=== PATIENT | female | born 1940 | race Asian ===

== ENCOUNTER 2022-09-24 19:13 | Inpatient (IN) | payer MEDICAID, MEDICARE ==
[~2022-09-24] VITALS: Ht 152.4 cm; Wt 43.1 kg
[2022-09-24 19:17] VITALS: BP_SYST 152
[2022-09-24] MEDS ORDERED: MECLIZINE HCL 25 MG TABLET (ANITVERT) PO ONE (19:45)
[2022-09-24] MEDS ORDERED: METOCLOPRAMIDE HCL 10 MG/2 ML VIAL IVP ONE (19:45)
[2022-09-24 19:59] LABS: BASOPHILS % (AUTO) 0.1 % (0.0-2.0); HEMATOCRIT 37.8 % (36-48); LYMPHOCYTES # (AUTO) 0.5 K/uL (1.0-5.5); LYMPHOCYTES % (AUTO) 4.2 % (20.5-51.5); MEAN CORPUSCULAR HEMOGLOBIN 28 pg (27-31); MEAN CORPUSCULAR HGB CONC 32 % (32-36); MEAN CORPUSCULAR VOLUME 89 fL (79.0-98.0); MONOCYTES # (AUTO) 1.2 K/uL (0.0-1.0); MONOCYTES % (AUTO) 9.6 % (1.7-9.3); NEUTROPHILS # (AUTO) 10.9 K/uL (1.8-7.7); NEUTROPHILS % (AUTO) 86.1 % (40.0-70.0); PLATELET COUNT (AUTO) 101 K/uL (130-430); RED BLOOD CELL COUNT(AUTO) 4.25 MIL/uL (4.2-6.2); WHITE BLOOD COUNT (AUTO) 12.7 K/uL (4.8-10.8)
[2022-09-24] MEDS ORDERED: MECLIZINE HCL 25 MG TABLET (ANITVERT) ONE (20:42)
[2022-09-24 21:07] LABS: ALANINE AMINOTRANSFERASE 20 U/L (12-78); ALBUMIN 2.5 g/dL (3.4-4.8); AMYLASE 35 U/L (0-100); ASPARTATE AMINOTRANSFERASE 24 U/L (10-37); CALCIUM 8.2 mg/dL (8.4-11.0); CREATININE 0.73 mg/dL (0.55-1.30); GLUCOSE 129 mg/dL (70-99); LIPASE 49 U/L (73-393); UREA NITROGEN, BLOOD 26 mg/dL (8-21)
[2022-09-24 21:38] LABS: ANION GAP 10 (5-15); CHLORIDE 105 mmol/L (98-107)
[2022-09-24] MEDS ORDERED: DILTIAZEM HCL 60 MG TABLET PO ONE (21:45)
[2022-09-24] MEDS ORDERED: dilTIAZem HCL IVP 5 MG/ML VIAL IVP ONE ×2 (21:45→22:15)
[2022-09-24] MEDS ORDERED: ASPIRIN 300 MG/SUPP.RECT SUPP RC ONE (21:45)
[2022-09-24 22:35] LABS: INR 1.1 (0.8-1.2); PROTHROMBIN TIME 11.5 SECS (9.5-12.5)
[2022-09-24] MEDS ORDERED: METOPROLOL TARTRATE 25 MG TABLET PO ONE (22:45)
[2022-09-24] MEDS ORDERED: ONDANSETRON HCL 4 MG/2 ML VIAL IVP PRN (22:45)
[2022-09-24] MEDS ORDERED: METHYLPREDNISOLONE SOD SUCC 40 MG/ML VIAL IVP SCH (22:45)
[2022-09-24] MEDS ORDERED: PANTOPRAZOLE SODIUM 40 MG/VIAL (PROTONIX) IVP ONE (22:45)
[2022-09-24] MEDS ORDERED: METOCLOPRAMIDE HCL 10 MG/2 ML VIAL IVP PRN (23:00)
[2022-09-24] MEDS ORDERED: cefTRIAXone 1 GM VIAL ONE (23:02)
[2022-09-24] MEDS: cefTRIAXone 1 GM in D5W 50 ML IV SCH (23:08)
[2022-09-24] MEDS ORDERED: IPRATROPIUM/ALBUTEROL SULFATE 3 ML AMPUL.NEB (DUONEB) INH PRN (23:30)
[2022-09-25 00:14] VITALS: BP_SYST 146
[2022-09-25] MEDS ORDERED: LEVO50CA4 PO (00:22)
[2022-09-25] MEDS ORDERED: RIVA15TA PO (00:22)
[2022-09-25] MEDS ORDERED: MELA1TAB14 PO (00:22)
[2022-09-25] MEDS ORDERED: ONDA4VIA52 IV (00:22)
[2022-09-25] MEDS ORDERED: ALEN10TA25 PO (00:22)
[2022-09-25] MEDS ORDERED: ACET325T PO (00:22)
[2022-09-25] MEDS ORDERED: METO25TA6 PO (00:22)
[2022-09-25] MEDS ORDERED: NITR1PAT47 TD (00:22)
[2022-09-25] MEDS ORDERED: ONDA-8 TL (00:22)
[2022-09-25] MEDS ORDERED: AMIO100T4 PO (00:22)
[2022-09-25] MEDS ORDERED: ROCPM1 IV (00:22)
[2022-09-25] MEDS ORDERED: ATOR20TA64 PO (00:22)
[2022-09-25 00:23] VITALS: BP_SYST 126
[2022-09-25 01:41] LABS: BILIRUBIN,URINE NEGATIVE (NEGATIVE); BLOOD, URINE 3+ (NEGATIVE); CLARITY/URINE SL CLOUDY (CLEAR); COLOR,URINE YELLOW (YELLOW); GLUCOSE,URINE NEGATIVE (NEGATIVE); KETONES,URINE NEGATIVE (NEGATIVE); LEUKOCYTE ESTERASE ,URINE 3+ (NEGATIVE); NITRITE, URINE POSITIVE (NEGATIVE); PH,URINE 6.5 (5.0-8.0); PROTEIN URINE 2+ (NEGATIVE)
[2022-09-25 01:53] LABS: BACTERIA,URINE MANY /HPF (None Seen); RBC,URINE 50-80 /HPF (0-3); WBC,URINE >100 /HPF (0-3)
[2022-09-25] MEDS: ACETAMINOPHEN 325 MG TABLET PO PRN (05:49)
[2022-09-25] MEDS ORDERED: ACETAMINOPHEN 325 MG TABLET ONE (05:50)
[2022-09-25 06:57] LABS: HEMATOCRIT 34.3 % (36-48); HEMOGLOBIN 11.3 g/dL (12.0-16.0); LYMPHOCYTES # (AUTO) 0.2 K/uL (1.0-5.5); LYMPHOCYTES % (AUTO) 2.3 % (20.5-51.5); MEAN CORPUSCULAR HEMOGLOBIN 29 pg (27-31); MEAN CORPUSCULAR HGB CONC 33 % (32-36); MEAN CORPUSCULAR VOLUME 88 fL (79.0-98.0); MONOCYTES # (AUTO) 0.2 K/uL (0.0-1.0); MONOCYTES % (AUTO) 2.1 % (1.7-9.3); NEUTROPHILS # (AUTO) 9.5 K/uL (1.8-7.7); NEUTROPHILS % (AUTO) 95.6 % (40.0-70.0); PLATELET COUNT (AUTO) 126 K/uL (130-430); RED BLOOD CELL COUNT(AUTO) 3.91 MIL/uL (4.2-6.2); RED CELL DISTRIBUTION WIDTH 12.9 % (9.0-15.0); WHITE BLOOD COUNT (AUTO) 9.9 K/uL (4.8-10.8)
[2022-09-25 07:07] LABS: ALANINE AMINOTRANSFERASE 21 U/L (12-78); ALBUMIN 2.4 g/dL (3.4-4.8); ANION GAP 9 (5-15); ASPARTATE AMINOTRANSFERASE 25 U/L (10-37); CHLORIDE 106 mmol/L (98-107); CREATININE 0.77 mg/dL (0.55-1.30); GLUCOSE 136 mg/dL (70-99); TOTAL BILIRUBIN 0.9 mg/dL (0.0-1.0); UREA NITROGEN, BLOOD 25 mg/dL (8-21)
[2022-09-25 08:00] VITALS: BP_SYST 117
[2022-09-25] MEDS ORDERED: ONDANSETRON HCL 4 MG/2 ML VIAL IVP PRN (08:45)
[2022-09-25] MEDS ORDERED: ZOLPIDEM TARTRATE 5 MG TABLET PO PRN (08:45)
[2022-09-25] MEDS ORDERED: DOCUSATE SODIUM 100 MG CAPSULE PO PRN (08:45)
[2022-09-25] MEDS ORDERED: NALOXONE HCL 0.4 MG/ML AMP (NARCAN) IVP PRN ×2 (08:45)
[2022-09-25] MEDS ORDERED: ACETAMINOPHEN 325 MG TABLET PO PRN (08:45)
[2022-09-25] MEDS ORDERED: MUPIROCIN 2% TOPICAL OINTMENT 22 GM NS PRN (08:45)
[2022-09-25] MEDS ORDERED: MAGNESIUM SULFATE 50 ML IV PRN (08:45)
[2022-09-25] MEDS ORDERED: MORPHINE 2 MG/ML INJ. SYRINGE IVP PRN (08:45)
[2022-09-25] MEDS ORDERED: POTASSIUM CHLORIDE 20 MEQ TAB.PRT.SR PO PRN (08:45)
[2022-09-25] MEDS: METOPROLOL TARTRATE 25 MG TABLET PO SCH ×2 (08:49→21:00)
[2022-09-25] MEDS: PANTOPRAZOLE SODIUM 40 MG/VIAL (PROTONIX) IVP SCH (08:59)
[2022-09-25] MEDS ORDERED: AMIODARONE HCL 200 MG TABLET PO SCH (09:00)
[2022-09-25] MEDS ORDERED: RIVAROXABAN 15 MG TABLET PO SCH (09:00)
[2022-09-25 11:40] VITALS: BP_SYST 120
[2022-09-25] MEDS ORDERED: RIVAROXABAN 10 MG TABLET ONE (11:51)
[2022-09-25] MEDS: LEVOTHYROXINE SODIUM 0.05 MG TABLET PO SCH (11:54)
[2022-09-25] MEDS: NACL 0.9% 1,000 ML IV SCH (13:18)
[2022-09-25 16:35] VITALS: BP_SYST 110
[2022-09-25 20:00] VITALS: BP_SYST 128
[2022-09-25] MEDS: ATORVASTATIN 20 MG TABLET PO SCH (21:00)
[2022-09-25] MEDS: MELATONIN 3 MG TABLET PO SCH (21:00)
[2022-09-25] MEDS: LORazepam 2 MG/ML VIAL IVP PRN (22:09)
[2022-09-26 00:44] VITALS: BP_SYST 108
[2022-09-26] MEDS: NACL 0.9% 1,000 ML IV SCH ×2 (01:04→20:24)
[2022-09-26] MEDS: cefTRIAXone 1 GM in D5W 50 ML IV SCH ×2 (01:04→22:19)
[2022-09-26] MEDS: LORazepam 2 MG/ML VIAL IVP PRN ×2 (05:46→10:37)
[2022-09-26 08:00] VITALS: BP_SYST 136
[2022-09-26 08:37] LABS: ANION GAP 7 (5-15); CALCIUM 8.3 mg/dL (8.4-11.0); CHLORIDE 110 mmol/L (98-107); CREATININE 0.55 mg/dL (0.55-1.30); GLUCOSE 101 mg/dL (70-99); UREA NITROGEN, BLOOD 35 mg/dL (8-21)
[2022-09-26 08:51] LABS: HEMATOCRIT 38.4 % (36-48); HEMOGLOBIN 12.7 g/dL (12.0-16.0); LYMPHOCYTES # (AUTO) 0.5 K/uL (1.0-5.5); LYMPHOCYTES % (AUTO) 4.5 % (20.5-51.5); MEAN CORPUSCULAR HEMOGLOBIN 29 pg (27-31); MEAN CORPUSCULAR HGB CONC 33 % (32-36); MEAN CORPUSCULAR VOLUME 88 fL (79.0-98.0); MONOCYTES # (AUTO) 0.7 K/uL (0.0-1.0); MONOCYTES % (AUTO) 6.4 % (1.7-9.3); NEUTROPHILS # (AUTO) 9.2 K/uL (1.8-7.7); NEUTROPHILS % (AUTO) 89.1 % (40.0-70.0); PLATELET COUNT (AUTO) 158 K/uL (130-430); RED BLOOD CELL COUNT(AUTO) 4.36 MIL/uL (4.2-6.2); RED CELL DISTRIBUTION WIDTH 13.2 % (9.0-15.0); WHITE BLOOD COUNT (AUTO) 10.3 K/uL (4.8-10.8)
[2022-09-26] MEDS: PANTOPRAZOLE SODIUM 40 MG/VIAL (PROTONIX) IVP SCH (08:53)
[2022-09-26] MEDS: METOPROLOL TARTRATE 25 MG TABLET PO SCH ×2 (09:01→20:40)
[2022-09-26] MEDS: LEVOTHYROXINE SODIUM 0.05 MG TABLET PO SCH (09:01)
[2022-09-26] MEDS: RIVAROXABAN 10 MG TABLET PO SCH (09:02)
[2022-09-26 11:30] VITALS: BP_SYST 121
[2022-09-26 15:35] VITALS: BP_SYST 127
[2022-09-26 20:00] VITALS: BP_SYST 125
[2022-09-26] MEDS: MELATONIN 3 MG TABLET PO SCH ×2 (20:25→20:40)
[2022-09-26] MEDS: ATORVASTATIN 20 MG TABLET PO SCH (20:39)
[2022-09-26] MEDS: metroNIDAZOLE 500 mg/NS 100 ML IV SCH (20:42)
[2022-09-26] MEDS ORDERED: MUPIROCIN 2% TOPICAL OINTMENT 22 GM TP SCH (21:00)
[2022-09-26] MEDS: MUPIROCIN 2% TOPICAL OINTMENT 22 GM NS SCH (22:18)
[2022-09-27] MEDS: LORazepam 2 MG/ML VIAL IVP PRN ×3 (00:41→09:09)
[2022-09-27 00:58] VITALS: BP_SYST 128
[2022-09-27] MEDS: metroNIDAZOLE 500 mg/NS 100 ML IV SCH ×3 (05:14→21:54)
[2022-09-27 08:00] VITALS: BP_SYST 122
[2022-09-27 08:33] LABS: ANION GAP 11 (5-15); CALCIUM 8.2 mg/dL (8.4-11.0); CHLORIDE 112 mmol/L (98-107); CREATININE 0.69 mg/dL (0.55-1.30); GLUCOSE 88 mg/dL (70-99); UREA NITROGEN, BLOOD 31 mg/dL (8-21)
[2022-09-27 08:40] LABS: BASOPHILS % (AUTO) 0.1 % (0.0-2.0); EOSINOPHILS % (AUTO) 0.1 % (0.0-4.0); HEMATOCRIT 36.7 % (36-48); HEMOGLOBIN 12.1 g/dL (12.0-16.0); LYMPHOCYTES # (AUTO) 0.7 K/uL (1.0-5.5); LYMPHOCYTES % (AUTO) 8.2 % (20.5-51.5); MEAN CORPUSCULAR HEMOGLOBIN 29 pg (27-31); MEAN CORPUSCULAR HGB CONC 33 % (32-36); MEAN CORPUSCULAR VOLUME 88 fL (79.0-98.0); MONOCYTES # (AUTO) 0.8 K/uL (0.0-1.0); MONOCYTES % (AUTO) 9.4 % (1.7-9.3); NEUTROPHILS # (AUTO) 7.2 K/uL (1.8-7.7); NEUTROPHILS % (AUTO) 82.2 % (40.0-70.0); PLATELET COUNT (AUTO) 188 K/uL (130-430); RED BLOOD CELL COUNT(AUTO) 4.16 MIL/uL (4.2-6.2); RED CELL DISTRIBUTION WIDTH 13.3 % (9.0-15.0); WHITE BLOOD COUNT (AUTO) 8.7 K/uL (4.8-10.8)
[2022-09-27] MEDS: RIVAROXABAN 10 MG TABLET PO SCH (09:00)
[2022-09-27] MEDS: METOPROLOL TARTRATE 25 MG TABLET PO SCH ×2 (09:00→21:00)
[2022-09-27] MEDS: LEVOTHYROXINE SODIUM 0.05 MG TABLET PO SCH (09:00)
[2022-09-27] MEDS: PANTOPRAZOLE SODIUM 40 MG/VIAL (PROTONIX) IVP SCH (09:08)
[2022-09-27] MEDS: MUPIROCIN 2% TOPICAL OINTMENT 22 GM NS SCH ×2 (09:15→21:50)
[2022-09-27] MEDS: NACL 0.9% 1,000 ML IV SCH ×2 (10:45→23:52)
[2022-09-27] MEDS: dilTIAZem HCL IVP 5 MG/ML VIAL IVP PRN ×2 (12:20→19:00)
[2022-09-27 12:49] VITALS: BP_SYST 144
[2022-09-27] MEDS: MORPHINE 2 MG/ML INJ. SYRINGE IVP PRN (14:00)
[2022-09-27] MEDS ORDERED: METOPROLOL TARTRATE 5 MG/5 ML VIAL IVP ONE (14:45)
[2022-09-27 16:17] VITALS: BP_SYST 143
[2022-09-27 20:57] VITALS: BP_SYST 147
[2022-09-27] MEDS: MELATONIN 3 MG TABLET PO SCH (21:00)
[2022-09-27] MEDS: ATORVASTATIN 20 MG TABLET PO SCH (21:00)
[2022-09-27] MEDS: cefTRIAXone 1 GM in D5W 50 ML IV SCH (23:42)
[2022-09-28 00:46] VITALS: BP_SYST 135
[2022-09-28] MEDS: MORPHINE 2 MG/ML INJ. SYRINGE IVP PRN (00:56)
[2022-09-28] MEDS: dilTIAZem HCL IVP 5 MG/ML VIAL IVP PRN (01:47)
[2022-09-28] MEDS: LORazepam 2 MG/ML VIAL IVP PRN ×2 (05:40→10:20)
[2022-09-28] MEDS: metroNIDAZOLE 500 mg/NS 100 ML IV SCH ×2 (05:42→21:30)
[2022-09-28 08:51] LABS: ANION GAP 11 (5-15); CHLORIDE 106 mmol/L (98-107); CREATININE 0.62 mg/dL (0.55-1.30); GLUCOSE 81 mg/dL (70-99); UREA NITROGEN, BLOOD 17 mg/dL (8-21)
[2022-09-28] MEDS: METOPROLOL TARTRATE 25 MG TABLET PO SCH ×2 (09:00→21:31)
[2022-09-28] MEDS: RIVAROXABAN 10 MG TABLET PO SCH (09:00)
[2022-09-28] MEDS: LEVOTHYROXINE SODIUM 0.05 MG TABLET PO SCH (09:00)
[2022-09-28 09:08] LABS: BASOPHILS % (AUTO) 0.1 % (0.0-2.0); EOSINOPHILS # (AUTO) 0.1 K/uL (0.0-0.4); EOSINOPHILS % (AUTO) 0.6 % (0.0-4.0); HEMATOCRIT 39.1 % (36-48); LYMPHOCYTES % (AUTO) 10.6 % (20.5-51.5); MEAN CORPUSCULAR HEMOGLOBIN 29 pg (27-31); MEAN CORPUSCULAR HGB CONC 33 % (32-36); MEAN CORPUSCULAR VOLUME 87 fL (79.0-98.0); MONOCYTES # (AUTO) 0.9 K/uL (0.0-1.0); MONOCYTES % (AUTO) 9.1 % (1.7-9.3); NEUTROPHILS # (AUTO) 7.6 K/uL (1.8-7.7); NEUTROPHILS % (AUTO) 79.6 % (40.0-70.0); PLATELET COUNT (AUTO) 235 K/uL (130-430); RED BLOOD CELL COUNT(AUTO) 4.48 MIL/uL (4.2-6.2); WHITE BLOOD COUNT (AUTO) 9.6 K/uL (4.8-10.8)
[2022-09-28] MEDS: MUPIROCIN 2% TOPICAL OINTMENT 22 GM NS SCH ×2 (09:34→21:34)
[2022-09-28] MEDS: PANTOPRAZOLE SODIUM 40 MG/VIAL (PROTONIX) IVP SCH (09:34)
[2022-09-28] MEDS ORDERED: POTASSIUM CHLORIDE 20 MEQ/PKT PACKET PO ONE (10:00)
[2022-09-28] MEDS ORDERED: KCL 40 mEq in 100 mL (PREMIX) 100 ML IV ONE (10:00)
[2022-09-28] MEDS: POTASSIUM CHLORIDE 20 mEq in 100 mL (PREMIX) 100 ML x 2 doses IV SCH ×2 (11:46→12:30)
[2022-09-28 12:00] VITALS: BP_SYST 136
[2022-09-28] MEDS ORDERED: POTASSIUM CHLORIDE 20 MEQ, LIDOCAINE JECT 2% PF 100 MG 50 MG in NS 250 ML IV ONE (14:15)
[2022-09-28 16:19] VITALS: BP_SYST 149
[2022-09-28 20:00] VITALS: BP_SYST 136
[2022-09-28] MEDS: ATORVASTATIN 20 MG TABLET PO SCH (21:30)
[2022-09-28] MEDS: MELATONIN 3 MG TABLET PO SCH (21:31)
[2022-09-28] MEDS: NACL 0.9% 1,000 ML IV SCH (21:34)
[2022-09-28] MEDS: cefTRIAXone 1 GM in D5W 50 ML IV SCH (23:02)
[2022-09-29] MEDS: ACETAMINOPHEN 325 MG TABLET PO PRN (00:39)
[2022-09-29] MEDS: dilTIAZem HCL IVP 5 MG/ML VIAL IVP PRN (00:47)
[2022-09-29] MEDS: LORazepam 2 MG/ML VIAL IVP PRN ×2 (01:10→06:51)
[2022-09-29 01:20] VITALS: BP_SYST 170
[2022-09-29 01:29] VITALS: BP_SYST 119
[2022-09-29] MEDS: metroNIDAZOLE 500 mg/NS 100 ML IV SCH (05:42)
[2022-09-29 06:13] LABS: BASOPHILS % (AUTO) 0.1 % (0.0-2.0); EOSINOPHILS # (AUTO) 0.1 K/uL (0.0-0.4); EOSINOPHILS % (AUTO) 1.1 % (0.0-4.0); HEMATOCRIT 36.5 % (36-48); HEMOGLOBIN 12.1 g/dL (12.0-16.0); LYMPHOCYTES # (AUTO) 0.8 K/uL (1.0-5.5); LYMPHOCYTES % (AUTO) 8.4 % (20.5-51.5); MEAN CORPUSCULAR HEMOGLOBIN 29 pg (27-31); MEAN CORPUSCULAR HGB CONC 33 % (32-36); MEAN CORPUSCULAR VOLUME 87 fL (79.0-98.0); MONOCYTES # (AUTO) 0.7 K/uL (0.0-1.0); NEUTROPHILS # (AUTO) 7.5 K/uL (1.8-7.7); NEUTROPHILS % (AUTO) 82.4 % (40.0-70.0); PLATELET COUNT (AUTO) 234 K/uL (130-430); RED BLOOD CELL COUNT(AUTO) 4.21 MIL/uL (4.2-6.2); RED CELL DISTRIBUTION WIDTH 12.9 % (9.0-15.0); WHITE BLOOD COUNT (AUTO) 9.1 K/uL (4.8-10.8)
[2022-09-29 06:32] LABS: ANION GAP 7 (5-15); CHLORIDE 110 mmol/L (98-107); CREATININE 0.55 mg/dL (0.55-1.30); GLUCOSE 106 mg/dL (70-99); UREA NITROGEN, BLOOD 17 mg/dL (8-21)
[2022-09-29 08:00] VITALS: BP_SYST 107
[2022-09-29] MEDS: METOPROLOL TARTRATE 25 MG TABLET PO SCH (08:47)
[2022-09-29] MEDS: LEVOTHYROXINE SODIUM 0.05 MG TABLET PO SCH (08:48)
[2022-09-29] MEDS: RIVAROXABAN 10 MG TABLET PO SCH (08:54)
[2022-09-29] MEDS: PANTOPRAZOLE SODIUM 40 MG/VIAL (PROTONIX) IVP SCH (09:00)
== END 2022-09-29 09:22 | DRG 201 ==
LOC: SED 19:13 → STU 21:55
PROVIDERS: ADMIT General Practice; ATTEND General Practice
DX: I48.91 Unspecified atrial fibrillation (principal); E43 Unspecified severe protein-calorie malnutrition; D69.6 Thrombocytopenia, unspecified; I69.351 Hemiplegia and hemiparesis following cerebral infarction affecting right dominant side; K52.9 Noninfective gastroenteritis and colitis, unspecified; N39.0 Urinary tract infection, site not specified; E78.5 Hyperlipidemia, unspecified; R13.10 Dysphagia, unspecified; E03.9 Hypothyroidism, unspecified; K80.20 Calculus of gallbladder without cholecystitis without obstruction; M81.0 Age-related osteoporosis without current pathological fracture; Z20.822 Contact with and (suspected) exposure to COVID-19; Z74.01 Bed confinement status; Z79.01 Long term (current) use of anticoagulants; Z68.1 Body mass index [BMI] 19.9 or less, adult
CPT/HCPCS: 36415; 70450-TC; 71045; 76376; 78226; 80048; 80053; 81000; 82150; 82550; 83036; 83690; 83735; 83880; 84484; 85025; 85610-TC; 85730-TC; 87081; 87086; 92610-GN; 93005; 93306; 96365; 96375; 99285; A9537; C9113; G0378; J0696; J1030; J2060; J2270; J2765; J3480; J3490; J7050; J7060; J8597

== ENCOUNTER 2023-05-06 23:00 | Inpatient (IN) | payer MEDICAID, MEDICARE ==
[~2023-05-06] VITALS: Ht 167.6 cm; Wt 44.5 kg
[~2023-05-06 23:00] MED LIST: ACET325T PO; ALEN10TA25 PO; ATOR20TA64 PO; LEVO50CA4 PO; MELA1TAB14 PO; METO25TA6 PO; NITR1PAT47 TD; ONDA-8 TL; ONDA4VIA52 IV; RIVA15TA PO
[2023-05-06 23:09] VITALS: BP_SYST 146; PULSE 92; RESP 18; TEMP 98.4; O2SAT 97
[2023-05-06] MEDS ORDERED: dilTIAZem HCL IVP 5 MG/ML VIAL IVP ONE (23:30)
[2023-05-06] MEDS ORDERED: dilTIAZem HCL IVP 5 MG/ML VIAL ONE (23:33)
[2023-05-06] MEDS ORDERED: ACETAMINOPHEN 500 MG TABLET PO ONE (23:45)
[2023-05-06] MEDS ORDERED: NACL 0.9% 1,000 ML IV ONE (23:45)
[2023-05-07 00:10] LABS: ANION GAP 11 (5-15); CALCIUM 8.7 mg/dL (8.4-11.0); CARBON DIOXIDE 28 mmol/L (23-29); CHLORIDE 103 mmol/L (98-107); CREATININE 0.85 mg/dL (0.55-1.30); GLUCOSE 136 mg/dL (74-106); POTASSIUM 3.9 mmol/L (3.5-5.1); SODIUM SERUM 142 mmol/L (136-145); UREA NITROGEN, BLOOD 42 mg/dL (8-21)
[2023-05-07 00:13] LABS: BASOPHILS % (AUTO) 0.1 % (0.0-2.0); EOSINOPHILS % (AUTO) 0.3 % (0.0-4.0); HEMATOCRIT 38.3 % (36-48); HEMOGLOBIN 12.5 g/dL (12.0-16.0); INR 1.1 (0.8-1.2); LYMPHOCYTES # (AUTO) 0.1 K/uL (1.0-5.5); LYMPHOCYTES % (AUTO) 1.5 % (20.5-51.5); MEAN CORPUSCULAR HEMOGLOBIN 28 pg (27-31); MEAN CORPUSCULAR HGB CONC 33 % (32-36); MEAN CORPUSCULAR VOLUME 86 fL (79.0-98.0); MONOCYTES # (AUTO) 0.1 K/uL (0.0-1.0); MONOCYTES % (AUTO) 0.8 % (1.7-9.3); NEUTROPHILS # (AUTO) 6.6 K/uL (1.8-7.7); NEUTROPHILS % (AUTO) 97.3 % (40.0-70.0); PLATELET COUNT (AUTO) 132 K/uL (130-430); RED BLOOD CELL COUNT(AUTO) 4.43 MIL/uL (4.2-6.2); RED CELL DISTRIBUTION WIDTH 16.1 % (9.0-15.0); WHITE BLOOD COUNT (AUTO) 6.8 K/uL (4.8-10.8)
[2023-05-07] MEDS ORDERED: dilTIAZem HCL IVP 5 MG/ML VIAL IVP ONE ×2 (00:15→03:00)
[2023-05-07 00:23] LABS: ALANINE AMINOTRANSFERASE 10 U/L (12-78); ALBUMIN 3.1 g/dL (3.4-4.8); ASPARTATE AMINOTRANSFERASE 16 U/L (10-37); FREE T4 (FREE THYROXINE) 1.6 ng/dL (0.6-1.6); LIPASE 20 U/L (73-393); THYROID STIMULATING HORMONE 1.23 uIu/mL (0.34-4.82); TOTAL BILIRUBIN 3.1 mg/dL (0.0-1.0); TOTAL PROTEIN, SERUM 7.1 g/dL (6.4-8.3)
[2023-05-07 00:57] LABS: BILIRUBIN,URINE NEGATIVE (NEGATIVE); GLUCOSE,URINE NEGATIVE (NEGATIVE); NITRITE, URINE POSITIVE (NEGATIVE); UROBILINOGEN,URINE 0.2 (0.2-1.0)
[2023-05-07 00:58] LABS: COLOR,URINE YELLOW (YELLOW); PROTEIN URINE 2+ (NEGATIVE)
[2023-05-07 00:59] LABS: BLOOD, URINE 3+ (NEGATIVE); CLARITY/URINE SLIGHTLY CLOUDY (CLEAR); KETONES,URINE TRACE (NEGATIVE); LEUKOCYTE ESTERASE ,URINE 3+ (NEGATIVE)
[2023-05-07] MEDS ORDERED: PIPERACILLIN/TAZO 3.375 GM in NS 50 ML IV ONE (01:30)
[2023-05-07] MEDS ORDERED: NACL 0.9% 1,000 ML IV ONE ×2 (01:30→02:00)
[2023-05-07] MEDS ORDERED: PIPERACILLIN/TAZOBACTAM 3.375 GM/VIAL (ZOSYN) IV ONE (01:36)
[2023-05-07 02:12] LABS: BACTERIA,URINE MODERATE /HPF (None Seen); RBC,URINE >100 /HPF (0-3); WBC,URINE >100 /HPF (0-3)
[2023-05-07] MEDS ORDERED: METOPROLOL TARTRATE 25 MG TABLET PO ONE ×2 (02:15→10:45)
[2023-05-07] MEDS ORDERED: D5/0.45 NS 1,000 ML IV ONE (03:30)
[2023-05-07] MEDS ORDERED: LEVO50TA8 PO (03:45)
[2023-05-07] MEDS ORDERED: NITR1PAT26 TP (03:45)
[2023-05-07] MEDS ORDERED: METO25TA6 PO (03:45)
[2023-05-07] MEDS ORDERED: METO10TA3 PO (03:45)
[2023-05-07 05:28] VITALS: BP_SYST 106; PULSE 94; RESP 18; TEMP 98.2
[2023-05-07 08:00] VITALS: O2SAT 99
[2023-05-07 08:16] VITALS: BP_SYST 139; PULSE 99; RESP 16; TEMP 98.6; O2SAT 99
[2023-05-07] MEDS ORDERED: HYDROcodone/ACETAMIN 10-325 MG TAB PO PRN (10:00)
[2023-05-07] MEDS ORDERED: LEVOTHYROXINE SODIUM 50 MCG PO SCH (10:00)
[2023-05-07] MEDS ORDERED: LEVOTHYROXINE SODIUM 0.05 MG TABLET PO SCH (10:00)
[2023-05-07] MEDS ORDERED: METOCLOPRAMIDE HCL 10 MG TABLET PO SCH (10:00)
[2023-05-07] MEDS ORDERED: NITROGLYCERIN 0.2 MG/HR PATCH.TD24 TD SCH (10:00)
[2023-05-07] MEDS ORDERED: ACETAMINOPHEN 325 MG TABLET PO PRN ×3 (10:00)
[2023-05-07] MEDS ORDERED: METOPROLOL TARTRATE 25 MG TABLET PO SCH (10:00)
[2023-05-07] MEDS ORDERED: RIVAROXABAN 15 MG TABLET PO SCH (10:00)
[2023-05-07] MEDS ORDERED: HYDROcodone/ACETAMIN 5-325 MG TAB (NORCO/ VICODIN) PO PRN (10:00)
[2023-05-07] MEDS ORDERED: NALOXONE HCL 0.4 MG/ML AMP (NARCAN) IVP PRN ×3 (10:00→13:15)
[2023-05-07] MEDS ORDERED: LEVOTHYROXINE SODIUM 0.05 MG TABLET PO ONE (10:30)
[2023-05-07] MEDS ORDERED: NITROGLYCERIN 0.2 MG/HR PATCH.TD24 TD ONE (10:30)
[2023-05-07] MEDS ORDERED: RIVAROXABAN 15 MG TABLET PO ONE (10:30)
[2023-05-07 12:32] VITALS: BP_SYST 126; PULSE 96; RESP 17; TEMP 98.4; O2SAT 98
[2023-05-07] MEDS: ONDANSETRON HCL 4 MG/2 ML VIAL IVP PRN (12:51)
[2023-05-07] MEDS: cefTRIAXone 1 GM IVPB PREMIX 50 ML IV SCH (12:51)
[2023-05-07] MEDS: MORPHINE 2 MG/ML INJ. SYRINGE IVP PRN (13:22)
[2023-05-07] MEDS: METOCLOPRAMIDE HCL 10 MG TABLET PO SCH ×2 (15:00→20:50)
[2023-05-07 16:00] VITALS: BP_SYST 132; PULSE 97; RESP 16; TEMP 98.5; O2SAT 99
[2023-05-07] MEDS: D5/0.45 NS 1,000 ML IV SCH (17:50)
[2023-05-07 19:35] VITALS: BP_SYST 122; PULSE 101; RESP 18; TEMP 97.5
[2023-05-07] MEDS: ATORVASTATIN 20 MG TABLET PO SCH (20:50)
[2023-05-07] MEDS: METOPROLOL TARTRATE 25 MG TABLET PO SCH (20:52)
[2023-05-07] MEDS: MELATONIN 3 MG TABLET PO SCH (20:54)
[2023-05-07] MEDS: ACETAMINOPHEN 325 MG TABLET PO PRN (20:55)
[2023-05-07] MEDS ORDERED: ATORVASTATIN 20 MG TABLET PO SCH (21:00)
[2023-05-08 00:41] VITALS: BP_SYST 111; PULSE 83; RESP 14; TEMP 96.7; O2SAT 95
[2023-05-08] MEDS: D5/0.45 NS 1,000 ML IV SCH ×2 (04:17→14:32)
[2023-05-08] MEDS: LEVOTHYROXINE SODIUM 0.05 MG TABLET PO SCH (05:56)
[2023-05-08 06:28] LABS: BASOPHILS % (AUTO) 0.2 % (0.0-2.0); EOSINOPHILS % (AUTO) 0.2 % (0.0-4.0); HEMATOCRIT 30.7 % (36-48); LYMPHOCYTES # (AUTO) 0.7 K/uL (1.0-5.5); MEAN CORPUSCULAR HEMOGLOBIN 28 pg (27-31); MEAN CORPUSCULAR HGB CONC 33 % (32-36); MEAN CORPUSCULAR VOLUME 86 fL (79.0-98.0); MONOCYTES # (AUTO) 0.8 K/uL (0.0-1.0); MONOCYTES % (AUTO) 8.5 % (1.7-9.3); NEUTROPHILS # (AUTO) 7.9 K/uL (1.8-7.7); NEUTROPHILS % (AUTO) 84.1 % (40.0-70.0); PLATELET COUNT (AUTO) 121 K/uL (130-430); RED BLOOD CELL COUNT(AUTO) 3.55 MIL/uL (4.2-6.2); WHITE BLOOD COUNT (AUTO) 9.3 K/uL (4.8-10.8)
[2023-05-08 06:51] LABS: ANION GAP 7 (5-15); CALCIUM 7.2 mg/dL (8.4-11.0); CARBON DIOXIDE 26 mmol/L (23-29); CHLORIDE 108 mmol/L (98-107); CREATININE 0.71 mg/dL (0.55-1.30); GLUCOSE 122 mg/dL (74-106); POTASSIUM 3.4 mmol/L (3.5-5.1); SODIUM SERUM 141 mmol/L (136-145); UREA NITROGEN, BLOOD 26 mg/dL (8-21)
[2023-05-08 06:54] LABS: ALANINE AMINOTRANSFERASE 17 U/L (12-78); ALBUMIN 2.1 g/dL (3.4-4.8); ASPARTATE AMINOTRANSFERASE 20 U/L (10-37); TOTAL BILIRUBIN 1.6 mg/dL (0.0-1.0); TOTAL PROTEIN, SERUM 5.4 g/dL (6.4-8.3)
[2023-05-08 08:00] VITALS: O2SAT 98
[2023-05-08 08:16] VITALS: BP_SYST 120; PULSE 105; RESP 18; TEMP 98.2
[2023-05-08] MEDS: METOCLOPRAMIDE HCL 10 MG TABLET PO SCH ×3 (08:34→21:19)
[2023-05-08] MEDS: NITROGLYCERIN 0.2 MG/HR PATCH.TD24 TD SCH (08:34)
[2023-05-08] MEDS: METOPROLOL TARTRATE 25 MG TABLET PO SCH ×2 (08:35→21:18)
[2023-05-08] MEDS: RIVAROXABAN 15 MG TABLET PO SCH (08:37)
[2023-05-08] MEDS: LORazepam 2 MG/ML VIAL IVP PRN ×2 (08:56→21:16)
[2023-05-08 12:44] VITALS: BP_SYST 115; PULSE 94; RESP 16; TEMP 97.6; O2SAT 97
[2023-05-08] MEDS ORDERED: SACUBITRIL/VALSARTAN 24 MG-26 MG 1 TABLET PO ONE (13:00)
[2023-05-08] MEDS: cefTRIAXone 1 GM IVPB PREMIX 50 ML IV SCH (13:45)
[2023-05-08 16:00] VITALS: BP_SYST 118; PULSE 98; RESP 17; TEMP 98; O2SAT 96
[2023-05-08 19:40] VITALS: BP_SYST 123; PULSE 101; RESP 18; TEMP 98.6; O2SAT 97
[2023-05-08] MEDS: ACETAMINOPHEN 325 MG TABLET PO PRN (21:18)
[2023-05-08] MEDS: ATORVASTATIN 20 MG TABLET PO SCH (21:18)
[2023-05-08] MEDS: ONDANSETRON HCL 4 MG/2 ML VIAL IVP PRN (21:19)
[2023-05-08] MEDS: MELATONIN 3 MG TABLET PO SCH (21:23)
[2023-05-08] MEDS: SACUBITRIL/VALSARTAN 24 MG-26 MG 1 TABLET PO SCH (21:23)
[2023-05-09 00:29] VITALS: BP_SYST 133; PULSE 124; RESP 19; TEMP 96.5; O2SAT 95
[2023-05-09 00:35] VITALS: BP_SYST 111; PULSE 84; RESP 18; TEMP 98.1; O2SAT 97
[2023-05-09] MEDS: dilTIAZem HCL IVP 5 MG/ML VIAL IVP PRN ×3 (00:39→18:12)
[2023-05-09] MEDS: D5/0.45 NS 1,000 ML IV SCH ×2 (00:40→09:45)
[2023-05-09] MEDS: LORazepam 2 MG/ML VIAL IVP PRN ×2 (03:36→18:40)
[2023-05-09 05:43] LABS: BASOPHILS % (AUTO) 0.3 % (0.0-2.0); EOSINOPHILS # (AUTO) 0.1 K/uL (0.0-0.4); EOSINOPHILS % (AUTO) 1.2 % (0.0-4.0); HEMATOCRIT 33.5 % (36-48); HEMOGLOBIN 10.8 g/dL (12.0-16.0); LYMPHOCYTES # (AUTO) 0.6 K/uL (1.0-5.5); LYMPHOCYTES % (AUTO) 7.3 % (20.5-51.5); MEAN CORPUSCULAR HEMOGLOBIN 28 pg (27-31); MEAN CORPUSCULAR HGB CONC 32 % (32-36); MEAN CORPUSCULAR VOLUME 86 fL (79.0-98.0); MONOCYTES # (AUTO) 0.9 K/uL (0.0-1.0); NEUTROPHILS # (AUTO) 7.2 K/uL (1.8-7.7); NEUTROPHILS % (AUTO) 81.2 % (40.0-70.0); PLATELET COUNT (AUTO) 133 K/uL (130-430); RED BLOOD CELL COUNT(AUTO) 3.89 MIL/uL (4.2-6.2); RED CELL DISTRIBUTION WIDTH 15.8 % (9.0-15.0); WHITE BLOOD COUNT (AUTO) 8.8 K/uL (4.8-10.8)
[2023-05-09 05:48] LABS: ERYTHROCYTE SEDIMENTATION RATE 43 MM/HR (0-20)
[2023-05-09 05:55] LABS: PROTHROMBIN TIME 10.4 SECS (9.5-12.5)
[2023-05-09 06:04] LABS: ALANINE AMINOTRANSFERASE 13 U/L (12-78); ANION GAP 9 (5-15); ASPARTATE AMINOTRANSFERASE 21 U/L (10-37); CALCIUM 7.1 mg/dL (8.4-11.0); CARBON DIOXIDE 24 mmol/L (23-29); CHLORIDE 106 mmol/L (98-107); CREATININE 0.55 mg/dL (0.55-1.30); GLUCOSE 102 mg/dL (74-106); LIPASE 51 U/L (73-393); SODIUM SERUM 139 mmol/L (136-145); TOTAL BILIRUBIN 1.2 mg/dL (0.0-1.0); TOTAL PROTEIN, SERUM 5.3 g/dL (6.4-8.3); UREA NITROGEN, BLOOD 14 mg/dL (8-21)
[2023-05-09] MEDS: LEVOTHYROXINE SODIUM 0.05 MG TABLET PO SCH (07:00)
[2023-05-09 08:00] VITALS: BP_SYST 137; PULSE 128; RESP 18; TEMP 98.3; O2SAT 96; O2SAT 98
[2023-05-09] MEDS: METOCLOPRAMIDE HCL 10 MG TABLET PO SCH ×3 (09:00→21:00)
[2023-05-09] MEDS: SACUBITRIL/VALSARTAN 24 MG-26 MG 1 TABLET PO SCH ×2 (09:00→21:00)
[2023-05-09] MEDS: RIVAROXABAN 15 MG TABLET PO SCH (09:00)
[2023-05-09] MEDS: NITROGLYCERIN 0.2 MG/HR PATCH.TD24 TD SCH (09:00)
[2023-05-09] MEDS: MORPHINE 2 MG/ML INJ. SYRINGE IVP PRN (09:35)
[2023-05-09] MEDS ORDERED: DIGOXIN 0.5 MG/2 ML AMP IVP ONE ×3 (10:00→22:00)
[2023-05-09] MEDS: cefTRIAXone 1 GM IVPB PREMIX 50 ML IV SCH (10:25)
[2023-05-09] MEDS ORDERED: POTASSIUM CHLORIDE 40 MEQ, LIDOCAINE JECT 2% PF 100 MG 50 MG in NS 250 ML IV ONE (11:00)
[2023-05-09 11:30] VITALS: BP_SYST 155; PULSE 144; RESP 22; TEMP 98; O2SAT 93
[2023-05-09] MEDS ORDERED: KCL 20 mEq in 100 mL (PREMIX) 200 ML IV ONE (11:42)
[2023-05-09] MEDS ORDERED: METO-442 PO (12:05)
[2023-05-09] MEDS ORDERED: SACU1TAB PO (12:05)
[2023-05-09] MEDS ORDERED: TAMS-11 PO (12:07)
[2023-05-09] MEDS ORDERED: LEVO250T73 PO (12:12)
[2023-05-09] MEDS: MORPHINE 4 MG INJ. 4 MG/ML VIAL IVP PRN (12:40)
[2023-05-09 17:30] VITALS: BP_SYST 149; PULSE 148; RESP 22; TEMP 99; O2SAT 94
[2023-05-09 20:00] VITALS: BP_SYST 123; PULSE 100; RESP 18; TEMP 99.4; O2SAT 93
[2023-05-09] MEDS: MELATONIN 3 MG TABLET PO SCH (21:00)
[2023-05-09] MEDS: ATORVASTATIN 20 MG TABLET PO SCH (21:00)
[2023-05-09] MEDS: METOPROLOL TARTRATE 50 MG TABLET PO SCH (21:00)
[2023-05-10] MEDS: LORazepam 2 MG/ML VIAL IVP PRN (00:14)
[2023-05-10] MEDS: D5/0.45 NS 1,000 ML IV SCH ×3 (00:17→15:45)
[2023-05-10 01:18] VITALS: BP_SYST 120; PULSE 98; RESP 17; TEMP 97.4; O2SAT 93
[2023-05-10] MEDS: MORPHINE 4 MG INJ. 4 MG/ML VIAL IVP PRN ×2 (02:30→06:18)
[2023-05-10] MEDS: LEVOTHYROXINE SODIUM 0.05 MG TABLET PO SCH (06:22)
[2023-05-10 08:00] VITALS: BP_SYST 137; PULSE 109; RESP 18; TEMP 99.3; O2SAT 96
[2023-05-10] MEDS: SACUBITRIL/VALSARTAN 24 MG-26 MG 1 TABLET PO SCH (08:15)
[2023-05-10] MEDS: METOCLOPRAMIDE HCL 10 MG TABLET PO SCH ×3 (08:15→21:00)
[2023-05-10] MEDS: TAMSULOSIN HCL 0.4 MG CAP PO SCH (08:15)
[2023-05-10] MEDS: METOPROLOL TARTRATE 50 MG TABLET PO SCH ×2 (08:15→22:20)
[2023-05-10] MEDS: RIVAROXABAN 15 MG TABLET PO SCH (08:15)
[2023-05-10] MEDS: NITROGLYCERIN 0.2 MG/HR PATCH.TD24 TD SCH (10:53)
[2023-05-10] MEDS: dilTIAZem HCL IVP 5 MG/ML VIAL IVP PRN ×2 (11:15→20:49)
[2023-05-10] MEDS: cefTRIAXone 1 GM IVPB PREMIX 50 ML IV SCH (11:23)
[2023-05-10 11:30] VITALS: BP_SYST 180; PULSE 158; RESP 20; TEMP 98.4; O2SAT 95
[2023-05-10 12:14] VITALS: O2SAT 97
[2023-05-10] MEDS ORDERED: POTASSIUM CHLORIDE 40 MEQ, LIDOCAINE JECT 2% PF 100 MG 50 MG in NS 250 ML IV ONE (15:00)
[2023-05-10] MEDS ORDERED: hydrALAZINE HCL 20 MG/ML VIAL IVP PRN (15:30)
[2023-05-10] MEDS ORDERED: METOPROLOL TARTRATE 5 MG/5 ML VIAL IVP PRN (15:30)
[2023-05-10 17:30] VITALS: BP_SYST 164; PULSE 146; RESP 22; TEMP 97.8; O2SAT 97
[2023-05-10 20:00] VITALS: BP_SYST 121; PULSE 187; RESP 22; O2SAT 95
[2023-05-10] MEDS: MELATONIN 3 MG TABLET PO SCH (21:00)
[2023-05-10] MEDS ORDERED: HALOPERIDOL LACTATE 5 MG/ML VIAL IM ONE (21:45)
[2023-05-11] MEDS: D5/0.45 NS 1,000 ML IV SCH ×2 (01:00→10:17)
[2023-05-11 01:37] VITALS: BP_SYST 125; PULSE 160; RESP 16; TEMP 96.5; O2SAT 96
[2023-05-11] MEDS: LEVOTHYROXINE SODIUM 0.05 MG TABLET PO SCH (05:58)
[2023-05-11] MEDS ORDERED: ALENDRONATE SODIUM 35 MG TABLET PO SCH (06:00)
[2023-05-11 08:00] VITALS: BP_SYST 151; PULSE 108; RESP 18; TEMP 97; O2SAT 98
[2023-05-11 08:45] VITALS: O2SAT 98
[2023-05-11] MEDS: METOCLOPRAMIDE HCL 10 MG TABLET PO SCH (09:00)
[2023-05-11] MEDS ORDERED: ALENDRONATE SODIUM 10 MG TABLET (FOSAMAX) PO SCH (09:00)
[2023-05-11] MEDS: cefTRIAXone 1 GM IVPB PREMIX 50 ML IV SCH (10:00)
[2023-05-11] MEDS: RIVAROXABAN 15 MG TABLET PO SCH (10:10)
[2023-05-11] MEDS: METOPROLOL TARTRATE 50 MG TABLET PO SCH (10:14)
[2023-05-11] MEDS: TAMSULOSIN HCL 0.4 MG CAP PO SCH (10:16)
[2023-05-11 12:00] VITALS: BP_SYST 136; PULSE 109; RESP 20; TEMP 97.8; O2SAT 98
[2023-05-11 14:05] VITALS: BP_SYST 124; PULSE 100; RESP 18; TEMP 97.6; O2SAT 97
== END 2023-05-11 14:30 | DRG 720 ==
LOC: SED 23:00 → STU 05-07 03:27
PROVIDERS: ADMIT Preventive Medicine Preventive Medicine/Occupational Environmental Medicine; ATTEND Preventive Medicine Preventive Medicine/Occupational Environmental Medicine
DX: A41.51 Sepsis due to Escherichia coli [E. coli] (principal); I50.43 Acute on chronic combined systolic (congestive) and diastolic (congestive) heart failure; K56.609 Unspecified intestinal obstruction, unspecified as to partial versus complete obstruction; E43 Unspecified severe protein-calorie malnutrition; I42.9 Cardiomyopathy, unspecified; D69.6 Thrombocytopenia, unspecified; E88.09 Other disorders of plasma-protein metabolism, not elsewhere classified; I69.351 Hemiplegia and hemiparesis following cerebral infarction affecting right dominant side; I48.0 Paroxysmal atrial fibrillation; I25.10 Atherosclerotic heart disease of native coronary artery without angina pectoris; E78.5 Hyperlipidemia, unspecified; D64.9 Anemia, unspecified; Z66 Do not resuscitate; N13.6 Pyonephrosis; M81.0 Age-related osteoporosis without current pathological fracture; E87.5 Hyperkalemia; E83.52 Hypercalcemia; E80.6 Other disorders of bilirubin metabolism; E03.9 Hypothyroidism, unspecified; K56.7 Ileus, unspecified; Z79.01 Long term (current) use of anticoagulants; Z79.1 Long term (current) use of non-steroidal anti-inflammatories (NSAID); Z79.899 Other long term (current) drug therapy; Z93.1 Gastrostomy status; Z68.1 Body mass index [BMI] 19.9 or less, adult; I11.0 Hypertensive heart disease with heart failure
CPT/HCPCS: 36415; 71045; 74018; 76376; 80048; 80053; 81000; 83605; 83690; 84439; 84443; 84484; 85025; 85610-TC; 85651-TC; 85730-TC; 87040; 87081; 87086; 93005; 93306; 97110-GP; 97163-GP; 97530-GP; 99291; G0378; J0360; J0696; J1160; J1630; J2060; J2270; J2405; J2543; J3480; J3490; J7030; J7050; J8597